=== PATIENT | male | born 1980 | race Caucasian/White ===

== ENCOUNTER 2020-10-10 22:11 | Emergency (ER) | payer OTHER ==
[2020-10-10] MEDS ORDERED: Lidocaine 2% with EPINEPHrine 1:200,000 20 ML SDV INJECT ONE (22:53)
[2020-10-10] MEDS ORDERED: Oxymetazoline 0.05% Nasal Spray 30 ML Bottle NAS ONE (22:53)
[2020-10-10] MEDS ORDERED: Lidocaine 1% with EPINEPHrine 1:100,000 10 ML MDV ONE (22:57)
[2020-10-10] MEDS ORDERED: Lidocaine 1% with EPINEPHrine 1:100,000 10 ML MDV INJECT ONE (23:32)
--- NOTE | 2020-10-11 00:12 | EDM.PDOC ---
ED HPI GENERAL MEDICAL PROBLEM - General Chief Complaint: ENT Problem Stated Complaint: NOSE BLEED FOR 2 DAYS Time Seen by Provider: 10/10/20 22:49 Source of Information: Reports: Patient History Limitations: Reports: No Limitations - History of Present Illness INITIAL COMMENTS - FREE TEXT/NARRATIVE: Patient arrived to ED via private vehicle Onset of symptoms was yesterday 10/09/2020 Describes occurrence of bleeding from the right nostril Has subsequently had bleeding to throat and from left nostril as well Denies acute trauma or injury Denies anticoagulant medication Denies weakness or dizziness - Related Data Allergies Allergy/AdvReac Type Severity Reaction Status Date / Time No Known Allergies Allergy Verified 10/11/20 21:22 Home Meds: Home Meds . [No Known Home Meds] 10/10/20 [History] Past Medical History Cardiovascular History: Reports: Hypertension - Infectious Disease History Infectious Disease History: Reports: Chicken Pox - Past Surgical History GI Surgical History: Reports: Hernia Repair/Other Musculoskeletal Surgical History: Reports: Other (See Below) Other Musculoskeletal Surgeries/Procedures:: R leg surgery Social & Family History - Tobacco Use Tobacco Use Status *Q: Current Every Day Tobacco User Years of Tobacco use: 2 Packs/Tins Daily: 1 - Caffeine Use Caffeine Use: Reports: Coffee, Energy Drinks, Soda, Tea - Recreational Drug Use Recreational Drug Use: No ED ROS GENERAL - Review of Systems Review Of Systems: See Below Free Text/Narrative/Comment: Constitutional - no fever Eyes - no eye pain; no visual disturbance ENT - no rhinorrhea; no congestion; epistaxis Cardiovascular - no chest pain Respiratory - no shortness of breath; no cough Gastrointestinal - no abdominal pain; no nausea; no vomiting; no diarrhea Genitourinary - no dysuria Musculoskeletal - no neck pain; no back pain; no extremity injury Neurological - no headache; no speech disturbance; no weakness; no dizziness ED EXAM, GENERAL - Physical Exam Exam: See Below Free Text/Narrative:: Constitutional - awake; alert; no acute distress Head - no facial swelling or weakness; dried blood present inferonasally Eyes - extra ocular motion intact; conjunctiva normal ENT - no nasal deformity; bloody tissue present in right nostril; normal phonation; mucus membranes moist; Neck - no swelling Respiratory - normal respiratory effort Musculoskeletal - grossly normal strength and motion; no swelling or deformity Skin - warm; dry Neurologic - normal speech; no weakness; gait intact Psychiatric - normal mood and affect; memory and attention normal Course - Vital Signs Text/Narrative:: Symptoms and examination were discussed There was no specific indication for ED investigations After gathering of necessary supplies, further nasal examination was performed: nasal tissue pack was removed large clot was present in the right nostril Patient was instructed to blow his nose to evacuate clots There was mild to moderate active bleeding present from the right nostril Bleeding source could not be identified by direct visualization via nasal speculum and headlamp Oxymetazoline nasal spray was administered Lidocaine with epinephrine was also administered via atomizer There was no significant change in bleeding severity A 7.5 cm Rapid Rhino nasal balloon was prepared by soaking in sterile water Balloon was placed in the right nostril, tolerated well by patient Balloon was inflated with 2.5 mL of air and hemostasis was achieved Patient was observed for approximately 45 minutes duration with no recurrence of bleeding Primary care and/or ENT follow-up for balloon removal in 3 to 4 days was advised Patient was felt to be stable for outpatient follow-up Return precautions were provided Last Recorded V/S: Last Vital Signs Temp 36.6 C 10/10/20 22:19 Pulse 90 10/10/20 22:19 Resp 20 10/10/20 22:19 BP 185/101 H 10/10/20 22:19 Pulse Ox 95 10/10/20 22:19 - Orders/Labs/Meds Meds: Medications Discontinued Medications Generic Name Dose Route Start Last Admin Trade Name Koleq PRN Reason Stop Dose Admin Lidocaine/Epinephrine 10 ml 10/10/20 22:53 10/10/20 23:33 Lidocaine 2% With Epinephrine 1:200,000 20 Ml Sdv INJECT 10/10/20 22:54 Not Given ONETIME ONE Lidocaine/Epinephrine Confirm 10/10/20 22:57 10/10/20 23:34 Lidocaine 1% With Epinephrine 1:100,000 10 Ml Mdv Administered 10/10/20 22:58 Not Given Dose 10 ml .ROUTE .STK-MED ONE Lidocaine/Epinephrine 10 ml 10/10/20 23:32 10/10/20 23:34 Lidocaine 1% With Epinephrine 1:100,000 10 Ml Mdv INJECT 10/10/20 23:33 10 ml ONETIME ONE Administration Oxymetazoline HCl 1 ml 10/10/20 22:53 10/10/20 23:34 Oxymetazoline 0.05% Nasal [place] 30 Ml Bottle ARIS 10/10/20 22:54 1 ml ONETIME ONE Administration Departure - Departure Time of Disposition: 00:12 Disposition: Home, Self-Care 01 Condition: Good Clinical Impression: Epistaxis not due to trauma - Discharge Information Instructions: Nosebleed, Adult Referrals: PCP,None [Primary Care Provider] - Forms: ED Department Discharge Additional Instructions: Return if condition worsens May resume general activity and regular diet as tolerated Leave nasal balloon in place follow-up with provider in 2 to 3 days Follow-up with primary care provider/or ENT provider in 2 to 3 days Call [facility] Jose to arrange ENT follow-up: [phone] Sepsis Event Note (ED) - Evaluation Sepsis Screening Result: No Definite Risk
== END 2020-10-11 00:26 | disposition home or self-care (01) ==
LOC: JD.ED 22:11
DX: R04.0 Epistaxis (principal); Z72.0 Tobacco use
CPT/HCPCS: 30903; 99283; A9270

== ENCOUNTER 2020-10-11 21:10 | Emergency (ER) | payer OTHER ==
--- NOTE | 2020-10-11 21:55 | EDM.PDOC ---
ED HPI GENERAL MEDICAL PROBLEM - General Chief Complaint: ENT Problem Stated Complaint: NOSE BLEED Time Seen by Provider: 10/11/20 21:30 Source of Information: Reports: Patient History Limitations: Reports: No Limitations - History of Present Illness INITIAL COMMENTS - FREE TEXT/NARRATIVE: Patient arrived to ED via private vehicle He was seen by fiction writer in ED last night with epistaxis which began the previous day Bleeding source was not visible anteriorly for cautery attempt Hemostasis was subsequently achieved by placement of a 7.5 cm Rapid Rhino balloon Reports no occurrence of bleeding throughout the day Tonight while lying down, he experienced a large clot in the throat, which he expectorated States there was also scant amount of bloody drainage from the left nostril There is no current or persisting bleeding externally or in throat He notes that the nasal balloon feels loose compared with last night - Related Data Allergies Allergy/AdvReac Type Severity Reaction Status Date / Time No Known Allergies Allergy Verified 10/11/20 21:22 Home Meds: Home Meds . [No Known Home Meds] 10/10/20 [History] Past Medical History Cardiovascular History: Reports: Hypertension - Infectious Disease History Infectious Disease History: Reports: Chicken Pox - Past Surgical History GI Surgical History: Reports: Hernia Repair/Other Musculoskeletal Surgical History: Reports: Other (See Below) Other Musculoskeletal Surgeries/Procedures:: R leg surgery Social & Family History - Tobacco Use Tobacco Use Status *Q: Current Every Day Tobacco User Years of Tobacco use: 30 Packs/Tins Daily: 1 - Caffeine Use Caffeine Use: Reports: Coffee, Energy Drinks, Soda, Tea ED ROS GENERAL - Review of Systems Review Of Systems: See Below Constitutional: Denies: Weakness Respiratory: Denies: Shortness of Breath ED EXAM, GENERAL - Physical Exam Exam: See Below Free Text/Narrative:: Constitutional - awake; alert; no acute distress Head - no facial swelling or weakness Eyes - extra ocular motion intact; conjunctiva normal ENT - no nasal deformity; nasal balloon in place right nostril; no epistaxis; normal phonation; mucus membranes moist; minimal/scant blood streaks in po sterior pharynx Neck - no swelling Respiratory - normal respiratory effort Skin - warm; dry Neurologic - normal speech; no weakness; gait intact Psychiatric - normal mood and affect; memory and attention normal Course - Vital Signs Text/Narrative:: Symptoms and examination were discussed There were no symptoms or findings for active bleeding It was surmised that the clot he expectorated was residual after treatment last night An additional 1.5 mL of air was added to the nasal balloon precautionarily to maintain hemostasis Recommendation for timely ENT follow-up was reviewed Patient was felt to be stable for outpatient follow-up Return precautions were provided Last Recorded V/S: Last Vital Signs Temp 35.9 C L 10/11/20 21:20 Pulse 94 10/11/20 21:20 Resp 16 10/11/20 21:20 BP 161/113 H 10/11/20 21:20 Pulse Ox 96 10/11/20 21:20 Departure - Departure Time of Disposition: 21:53 Disposition: Home, Self-Care 01 Condition: Good Clinical Impression: Epistaxis not due to trauma - Discharge Information Instructions: Nosebleed, [id number] Referrals: PCP,None [Primary Care Provider] - Forms: ED Department Discharge Additional Instructions: Return if condition worsens May resume general activity and regular diet as tolerated Continue usual medications Follow-up with ENT (Ear, Nose, Throat/otorhinolaryngology) provider is recommended in 2 to 3 days Sepsis Event Note (ED) - Evaluation Sepsis Screening Result: No Definite Risk - Focused Exam Vital Signs: Vital Signs Temp Pulse Resp BP Pulse Ox 10/11/20 21:20 35.9 C L 94 16 161/113 H 96
== END 2020-10-11 22:00 | disposition home or self-care (01) ==
LOC: JD.ED 21:10
DX: R04.0 Epistaxis (principal); Z72.0 Tobacco use; X58.XXXA Exposure to other specified factors, initial encounter
CPT/HCPCS: 99283